=== PATIENT | female | born 1955 | race Caucasian/White ===

== ENCOUNTER → 2016-12-27 | Outpatient (CLI) | payer OTHER ==
--- NOTE | 2016-12-27 12:03 | REP ---
Clinical: Lung screening. History smoking. Technique: Axial low-dose noncontrast images from the thoracic inlet to the upper abdomen using lung screening technique. Findings: The lung mariano are well-aerated. No consolidation, significant nodule or mass lesion is appreciated. No pleural effusion/reaction or pneumothorax. Tracheobronchial tree is patent. Mediastinum demonstrates mild atherosclerotic changes of the coronary arteries without cardiomegaly. Impression: Lung-RADS category I. No nodule or suspicious abnormality. Signed by Miguel A Owen MD 12/27/2016 11:54 A
== END ==
LOC: M RAD 10:49
PROVIDERS: ATTEND Internal Medicine Medical Oncology
DX: F17.200 Nicotine dependence, unspecified, uncomplicated (principal)

== ENCOUNTER → 2017-07-17 | Outpatient (CLI) | payer OTHER ==
--- NOTE | 2017-07-17 16:08 | REPMRS ---
Patient History The patient states she had a clinical breast exam in 04/17 Patient is postmenopausal, has history of cancer in the right breast at age 56, and had previous chest radiation therapy at age 56. No known family history of cancer. Malignant lumpectomy of the right breast, 2011. Radiation therapy of the right breast. Took hormonal contraceptives for 20 years. Took tamoxifen for 4 years 6 months. Took unspecified hormones for 2 years. Digital Woman Screen Mammo: July 17, 2017 - Exam #: [id number] Bilateral CC and MLO view(s) were taken. Technologist: Pratima Tamez, Technologist Prior study comparison: July 14, 2016, digital woman screen mammo performed at [facility]. July 13, 2015, digital bilateral screening mammo, performed at [facility]. FINDINGS: There are scattered fibroglandular densities. There has been no change in the appearance of the mammogram from the prior studies. There is a mild amount of residual fibroglandular tissue which is fairly symmetric. There is no interval development of dominant mass, architectural distortion, or clustered microcalcification suggestive of malignancy. ASSESSMENT: BI-RADS/ACR category 1 mammogram. Negative. Recommendation Routine screening mammogram in 1 year (for women over age 40). This mammogram was interpreted with the aid of an FDA-approved computer-aided dectection system. Electronically Signed By: Adis De La Cruz MD 07/17/17 [id number]
== END ==
LOC: M WHC 12:44
PROVIDERS: ATTEND Nurse Practitioner Family
DX: Z12.31 Encounter for screening mammogram for malignant neoplasm of breast (principal); Z85.3 Personal history of malignant neoplasm of breast; Z92.3 Personal history of irradiation; Z92.0 Personal history of contraception; Z92.29 Personal history of other drug therapy; Z79.810 Long term (current) use of selective estrogen receptor modulators (SERMs)

== ENCOUNTER → 2018-07-18 | Outpatient (CLI) | payer MEDICARE, OTHER | LOC: M WHC 13:02 | DX: Z12.31 Encounter for screening mammogram for malignant neoplasm of breast (principal); Z85.3 Personal history of malignant neoplasm of breast; Z92.21 Personal history of antineoplastic chemotherapy; Z92.0 Personal history of contraception; Z92.29 Personal history of other drug therapy | CPT/HCPCS: 77067 ==

== ENCOUNTER → 2019-05-13 | Outpatient (CLI) | payer MEDICARE, OTHER ==
[~2019-05-13] MED LIST: ALBU8.5H IH; DITR5TAB PO; HYZA100T6 PO; MULTCAP PO; PRAV40TA2 PO; TIOT18INH INH
--- NOTE | 2019-05-13 15:18 | REP ---
Digital diagnostic unilateral right breast mammography with CAD, 3-D tomography. Findings: Question of a palpable lump over the incision medially at 3 o'clock in the right breast. The patient has a history of lumpectomy and radiation therapy in the right breast 2011. Comparison right breast mammography is from July 18, 2018, July 17, 2017, and July 14, 2016. Mammographic findings: A skin marker is affixed to the skin at the site of the palpable lump. This projects directly over a benign densely calcified fat necrosis nodule which is unchanged in size and seen to be gradually calcifying over time in the medial aspect of the right breast. This is not suspicious mammographically. The breast parenchyma is otherwise predominately fat replaced and unchanged. No other significant finding. Impression: BIRADS 2: BI-RADS/ACR category 2 mammogram. Benign Findings. Stable BI-RADS category 2 benign findings. Screening mammography can continue bilaterally. This mammogram was interpreted with the aid of an FDA-approved computer-aided detection system. The patient states she had a clinical breast exam in April 2019. The patient letter being requested is m2. Electronically Signed by Poncho Yadav MD 05/13/2019 04:54 P
== END ==
LOC: M RAD 13:17
PROVIDERS: ATTEND Nurse Practitioner Family
DX: N63.10 Unspecified lump in the right breast, unspecified quadrant (principal); Z92.3 Personal history of irradiation
CPT/HCPCS: 77065; G0279

== ENCOUNTER → 2019-07-19 | Outpatient (CLI) | payer MEDICARE, OTHER ==
--- NOTE | 2019-07-19 14:06 | REPMRS ---
Patient History The patient states she had a clinical breast exam in 04/2019. No known family history of cancer. Malignant lumpectomy of the right breast, 2012. Radiation therapy of the right breast. Took hormonal contraceptives for 20 years. Took tamoxifen for 4 years 6 months. Took unspecified hormones for 2 years. Digital Woman Screen Mammo: July 19, 2019 - Exam #: [id number] Bilateral CC and MLO view(s) were taken. Technologist: Deidra Shea Technologist Prior study comparison: May 13, 2019, right breast digital mammo diagnostic unilateral, performed at [facility]. July 18, 2018, bilateral digital woman screen mammo performed at [facility]. July 17, 2017, digital woman screen mammo performed at [facility]. FINDINGS: There are scattered fibroglandular densities. There is a large benign fat necrosis calcification medially in the right breast again noted unchanged. There has been no change in the appearance of the mammogram from the prior studies. There is a mild amount of scattered fibroglandular density which is fairly symmetric. There is no interval development of dominant mass, architectural distortion, or grouped microcalcification suggestive of malignancy. 3-D tomosynthesis shows no additional findings. Assessment: BI-RADS/ACR category 2 mammogram. Benign Findings. Recommendation Routine screening mammogram of both breasts in 1 year (for women over age 40). This mammogram was interpreted with the aid of an FDA-approved computer-aided dectection system. Electronically Signed By: Michael Yadav MD 07/19/19 [id number]
== END ==
LOC: M WHC 10:57
PROVIDERS: ATTEND Internal Medicine Medical Oncology
DX: Z12.31 Encounter for screening mammogram for malignant neoplasm of breast (principal); Z85.3 Personal history of malignant neoplasm of breast

== ENCOUNTER → 2019-10-16 | Outpatient (REF) | payer MEDICARE, OTHER | LOC: M LAB REF 09:06 | PROVIDERS: ATTEND Dermatology | DX: D23.72 Other benign neoplasm of skin of left lower limb, including hip (principal) ==

== ENCOUNTER → 2020-07-20 | Outpatient (CLI) | payer MEDICARE, OTHER ==
--- NOTE | 2020-07-20 15:02 | REPMRS ---
Patient History The patient states she has not had a clinical breast exam in over a year. No known family history of cancer. Malignant lumpectomy of the right breast, 2012. Radiation therapy of the right breast. Took hormonal contraceptives for 20 years. Took tamoxifen for 4 years 6 months. Took unspecified hormones for 2 years. 3D TOMOSYNTHESIS WAS PERFORMED. VOLPARA DAVI B. Digital Woman Screen Mammo: July 20, 2020 - Exam #: [id number] Bilateral CC and MLO view(s) were taken. Technologist: Didi Bhardwaj, Technologist Prior study comparison: July 19, 2019, bilateral digital woman screen mammo performed at [facility]. May 13, 2019, right breast digital mammo diagnostic unilateral, performed at [facility]. FINDINGS: There are scattered fibroglandular densities. There has been no change in the appearance of the mammogram from the prior studies. There is a mild amount of residual fibroglandular tissue which is fairly symmetric. There is no interval development of dominant mass, architectural distortion, or clustered microcalcification suggestive of malignancy. Assessment: BI-RADS/ACR category 1 mammogram. Negative Mammogram. Recommendation Routine screening mammogram in 1 year (for women over age 40). This mammogram was interpreted with the aid of an FDA-approved computer-aided dectection system. Electronically Signed By: Adis De La Cruz MD 07/20/20 [id number]
== END ==
LOC: M WHC 14:14
PROVIDERS: ATTEND Internal Medicine Hematology & Oncology
DX: Z12.31 Encounter for screening mammogram for malignant neoplasm of breast (principal); Z85.3 Personal history of malignant neoplasm of breast; Z92.3 Personal history of irradiation; Z92.0 Personal history of contraception

== ENCOUNTER → 2021-08-24 | Outpatient (CLI) | payer MEDICARE, OTHER ==
--- NOTE | 2021-08-24 15:18 | REPMRS ---
Patient History The patient states she has not had a clinical breast exam in over a year. No known family history of cancer. Malignant lumpectomy of the right breast, 2012. Radiation therapy of the right breast. Took hormonal contraceptives for 20 years. Took tamoxifen for 4 years 6 months. Took unspecified hormones for 2 years. Tomosynthesis is performed. Volpara breast density is b. Patient states no breast complaints today. Patient has signed MRS History Sheet. Digital Woman Screen Mammo: August 24, 2021 - Exam #: [id number] Bilateral CC and MLO view(s) were taken. Technologist: Didi Bhardwaj, Technologist Prior study comparison: July 20, 2020, bilateral digital woman screen mammo performed at [facility]. July 19, 2019, bilateral digital woman screen mammo performed at [facility]. FINDINGS: There are scattered fibroglandular densities. There has been no change in the appearance of the mammogram from the prior studies. There is a mild amount of residual fibroglandular tissue which is fairly symmetric. There is no interval development of dominant mass, architectural distortion, or clustered microcalcification suggestive of malignancy. Assessment: BI-RADS/ACR category 1 mammogram. Negative Mammogram. Recommendation Routine screening mammogram in 1 year (for women over age 40). This mammogram was interpreted with the aid of an FDA-approved computer-aided dectection system. Electronically Signed By: Adis De La Cruz MD 08/24/21 [id number]
== END ==
LOC: M WHC 13:17
PROVIDERS: ATTEND Family Medicine
DX: Z12.31 Encounter for screening mammogram for malignant neoplasm of breast (principal)

== ENCOUNTER → 2022-01-27 | Outpatient (CLI) | payer MEDICARE, OTHER | LOC: M RAD 10:28 | PROVIDERS: ATTEND Family Medicine | DX: Z87.891 Personal history of nicotine dependence (principal) ==

== ENCOUNTER → 2022-08-11 | Outpatient (CLI) | payer MEDICARE, OTHER | LOC: M WHC 14:41 | PROVIDERS: ATTEND Family Medicine | DX: Z12.31 Encounter for screening mammogram for malignant neoplasm of breast (principal) ==

== ENCOUNTER → 2023-08-30 | Outpatient (CLI) | payer MEDICARE, OTHER ==
[~2023-08-30] MED LIST changes: -HYZA100T6 PO; +LOSA-536 PO
== END ==
LOC: M WHC 10:52
PROVIDERS: ATTEND Family Medicine
DX: Z12.31 Encounter for screening mammogram for malignant neoplasm of breast (principal)

== ENCOUNTER → 2024-01-25 | Outpatient (CLI) | payer MEDICARE, OTHER | LOC: M RAD 08:28 | PROVIDERS: ATTEND Family Medicine | DX: F17.210 Nicotine dependence, cigarettes, uncomplicated (principal) ==

== ENCOUNTER → 2024-09-03 | Outpatient (CLI) | payer MEDICARE, OTHER | LOC: M WHC 10:49 | PROVIDERS: ATTEND Internal Medicine | DX: Z12.31 Encounter for screening mammogram for malignant neoplasm of breast (principal) ==

== ENCOUNTER → 2025-01-21 | Outpatient (CLI) | payer MEDICARE, OTHER | LOC: M WHC 14:03 | PROVIDERS: ATTEND Family Medicine | DX: M81.0 Age-related osteoporosis without current pathological fracture (principal) ==

== ENCOUNTER → 2025-05-02 | Outpatient (CLI) | payer MEDICARE, OTHER ==
[~2025-05-02] MED LIST changes: -PRAV40TA2 PO; +PRAV40TA85 PO
== END ==
LOC: M RAD 13:56
PROVIDERS: ATTEND Family Medicine
DX: Z12.2 Encounter for screening for malignant neoplasm of respiratory organs (principal); F17.210 Nicotine dependence, cigarettes, uncomplicated

== ENCOUNTER → 2025-08-22 | Outpatient (CLI) | payer MEDICARE, OTHER | LOC: M RAD 16:56 | PROVIDERS: ATTEND Family Medicine | DX: R05.3 Chronic cough (principal) ==